=== PATIENT | female | born 1950 | race Caucasian/White ===

== ENCOUNTER 2020-09-06 14:32 | Emergency (ER) | payer MEDICARE, OTHER ==
[~2020-09-06] VITALS: Ht 157.5 cm; Wt 59.1 kg
[2020-09-06 14:48] VITALS: BP 151/69; TEMP 99.1
[2020-09-06] MEDS ORDERED: CEPHALEXIN500 M1 PO (16:09)
[2020-09-06 16:27] VITALS: PULSE 68
== END 2020-09-06 16:29 | disposition home or self-care (01) ==
LOC: COL.ER 14:32
DX: R04.0 Epistaxis (principal); Z88.6 Allergy status to analgesic agent

== ENCOUNTER 2022-03-04 10:30 | Outpatient (RCR) | payer MEDICARE, OTHER ==
[~2022-03-04 10:30] MED LIST: CEPHALEXIN500 M1 PO
== END 2022-03-24 | disposition home or self-care (01) ==
LOC: WSPT
DX: M54.31 Sciatica, right side (principal)
CPT/HCPCS: G0283-GP